=== PATIENT | male | born 1960 | race Caucasian/White ===

== ENCOUNTER → 2016-07-21 | Outpatient (CLI) | payer OTHER ==
[~2016-07-21] MED LIST: KEFLEX500 MG PO; NAPROSYN500 MG PO; NO MEDICATIONS; PREDNISONE PO; ROBAXIN500 MG PO; ULTRAM PO
--- NOTE | ~2016-07-21 | CR63 ---
[facility] A Service of [facility] RADIOLOGY TEXT RESULTS PATIENT: NAIMA TUCKER I LOCATION: [facility] : 60 UNIT #: [id number] AGE: [address]: Batsheva Stevenson MD SEX: M ORDER DR: [id number] [place] [id number] O MR#: [id number] Acc #: [id number] NAME: NAIMA TUCKER : 1960 SEX: M STUDY DATE/TIME: 07/21/2016 14:10 UNIT: SRAD ROOM: STUDY DESCRIPTION: CR Chest 2 View Attending Physician: Batsheva Stevenson M.D. Referring Physician: Batsheva Stevenson M.D. Ordering Physician: Batsheva Stevenson M.D. Primary Care Physician: Batsheva Stevenson M.D. MEDICAL IMAGING REPORT This report is preliminary unless electronic signature is present. EXAM Chest PA and lateral 07/21/2016 HISTORY Shortness of breath. COMPARISON STUDIES None. HISTORY Shortness of breath beginning 3 weeks ago. FINDINGS PA and lateral views are obtained. Heart size is normal. There is an infiltrate in the lingular segment of the left upper lobe. The lungs otherwise appear clear. CONCLUSION Infiltrate lingular segment left upper lobe consistent with pneumonia. Dictated by... Rob Guerra M.D. THIS IS AN ELECTRONICALLY VERIFIED REPORT Rob Guerra M.D. at 07/22/2016 7:28 AM MARIBELL/jeremy TD: 07/21/2016 18:00 JOB #: [id number] [facility] A Service of [facility] RADIOLOGY TEXT RESULTS PATIENT: NAIMA TUCKER I LOCATION: MICHELLE : 60 UNIT #: [id number] AGE: [address]: Batsheva Stevenson MD SEX: M ORDER DR: MEDICAL IMAGING REPORT Page 1 of 1
== END | disposition home or self-care (01) ==
LOC: SRAD 14:05
DX: R06.02 Shortness of breath (principal); R91.8 Other nonspecific abnormal finding of lung field
CPT/HCPCS: 71020